=== PATIENT | male | born 1995 | race Caucasian/White ===

== ENCOUNTER 2024-02-28 01:01 | Emergency (ER) | payer OTHER ==
[~2024-02-28] VITALS: Ht 172.7 cm; Wt 87.9 kg
[2024-02-28 01:11] VITALS: BP 132/83; TEMP 97.8; O2SAT 97
== END 2024-02-28 06:55 | disposition home or self-care (01) ==
LOC: EDBD 01:01 → M ED 01:01
DX: S91.112A Laceration without foreign body of left great toe without damage to nail, initial encounter (principal); Y92.019 Unspecified place in single-family (private) house as the place of occurrence of the external cause; Y93.9 Activity, unspecified; Y99.9 Unspecified external cause status; F41.9 Anxiety disorder, unspecified

== ENCOUNTER 2024-05-23 12:31 | Emergency (ER) | payer OTHER ==
[~2024-05-23] VITALS: Ht 172.7 cm; Wt 88.5 kg
[2024-05-23] MEDS ORDERED: BUSP10TA (12:43)
[2024-05-23] MEDS ORDERED: BACI28.417 TOP (15:55)
[2024-05-23] MEDS: BOOSTRIX VACCINE (TETANUS/DIPHTH/ACEL. PERTUSSIS) 0.5ML SYR IM.IMMUN ONE (16:02)
[2024-05-23 16:16] VITALS: BP 139/95; TEMP 96.5; O2SAT 98
== END 2024-05-23 16:26 | disposition home or self-care (01) ==
LOC: M ED 12:31
DX: S01.01XA Laceration without foreign body of scalp, initial encounter (principal); Y92.9 Unspecified place or not applicable; Y93.9 Activity, unspecified; Y99.0 Civilian activity done for income or pay; Z79.2 Long term (current) use of antibiotics; Z79.899 Other long term (current) drug therapy; Z23 Encounter for immunization

== ENCOUNTER → 2024-05-29 | Outpatient (CLI) | payer OTHER ==
[~2024-05-29] MED LIST: BACI28.417 TOP; BUSP10TA
== END ==
LOC: M RAD 15:58
DX: S09.90XA Unspecified injury of head, initial encounter (principal); W18.30XA Fall on same level, unspecified, initial encounter; Y92.009 Unspecified place in unspecified non-institutional (private) residence as the place of occurrence of the external cause